=== PATIENT | female | born 1980 | race Caucasian/White ===

== ENCOUNTER 2016-12-22 01:45 | Inpatient (IN) | payer BC ==
[~2016-12-22] VITALS: Ht 162.6 cm; Wt 83.0 kg
[2016-12-22] MEDS ORDERED: OXYTOCIN/NORMAL SALINE 1,000 ML IV SCH ×2 (02:14→23:18)
[2016-12-22] MEDS ORDERED: LR 1,000 ML IV ONE (02:14)
[2016-12-22] MEDS: LR 1,000 ML IV SCH ×2 (02:14→17:42)
[2016-12-22] MEDS ORDERED: NALBUPHINE HCL 10 MG/ML AMP IM PRN (02:15)
[2016-12-22] MEDS ORDERED: NALBUPHINE HCL 10 MG/ML AMP IVP PRN (02:15)
[2016-12-22] MEDS ORDERED: TERBUTALINE SULFATE 1 MG/ML VIAL SUBCUT ONE (02:15)
[2016-12-22 02:29] LABS: PLATELET COUNT (AUTO) 241 K/uL (130-430)
[2016-12-22 02:31] LABS: MEAN CORPUSCULAR HEMOGLOBIN 29 pg (27-31); MEAN CORPUSCULAR HGB CONC 34 % (32-36); MEAN CORPUSCULAR VOLUME 86 fL (79.0-98.0)
[2016-12-22 02:32] LABS: HEMATOCRIT 35.4 % (36-48); RED CELL DISTRIBUTION WIDTH 12.6 % (9.0-15.0); WHITE BLOOD COUNT (AUTO) 6.6 K/uL (4.8-10.8)
[2016-12-22 02:46] LABS: BAND % (MANUAL) 3 % (0-6); EOSINOPHILS % (MANUAL) 1 % (0-7); LYMPHOCYTES % (MANUAL) 22 % (20-46); MONOCYTES % (MANUAL) 8 % (0-11)
[2016-12-22 02:47] LABS: BASOPHILS % (MANUAL) 0 % (0-2)
[2016-12-22] MEDS ORDERED: fentaNYL CITRATE/PF 100 MCG/2 ML AMP ONE (03:00)
[2016-12-22] MEDS ORDERED: fentaNYL CITRATE/PF 100 MCG/2 ML AMP EP ONE (03:30)
[2016-12-22] MEDS ORDERED: FENT2mCg/mL-ROPIVA0.2%/NS EPID 150 ML EP SCH (03:30)
[2016-12-22] MEDS ORDERED: ePHEDrine sulfate 50 MG/ML VIAL IVP PRN (03:30)
[2016-12-22] MEDS ORDERED: LR 500 ML IV ONE (03:30)
[2016-12-22 04:57] VITALS: BP_SYST 125
[2016-12-22] MEDS ORDERED: ROPIVACAINE 40 MG/20 ML AMP EP ONE (08:52)
[2016-12-22] MEDS ORDERED: TEMAZEPAM 15 MG CAPSULE PO PRN (21:00)
[2016-12-22] MEDS ORDERED: OXYTOCIN/NORMAL SALINE 1,000 ML IV ONE (23:18)
[2016-12-22] MEDS ORDERED: LANOLIN 7 GM OINT. TP PRN (23:30)
[2016-12-22] MEDS ORDERED: DERMOPLAST SPRAY TP PRN (23:30)
[2016-12-22] MEDS ORDERED: OXYCODONE/ACETAMINOPHEN 5-325 TABLET PO PRN ×2 (23:30)
[2016-12-22] MEDS ORDERED: MEASLES,MUMPS&RUBELLA VACC/PF 12500 UNIT/0.5 ML VIAL SUBQ PRN (23:30)
[2016-12-22] MEDS ORDERED: METHYLERGONOVINE MALEATE 0.2 MG TABLET PO PRN (23:30)
[2016-12-22] MEDS ORDERED: RHO(D) IMMUNE GLOBULIN/MALTOSE 1500 UNITS/1.3 ML (WINHRO) IM PRN (23:30)
[2016-12-22] MEDS ORDERED: ANUSOL 1 EA SUPP.RECT (PREPARATION H) RC PRN (23:30)
[2016-12-22] MEDS ORDERED: HYDROcodone/ACETAMIN 5-325 MG TAB (NORCO/ VICODIN) PO PRN (23:30)
[2016-12-22] MEDS ORDERED: HYDROCORTISONE 0.5%, 28.35 GM TOPICAL CREAM TP PRN (23:30)
[2016-12-22] MEDS ORDERED: GLYCERIN/WITCH HAZEL (TUCKS PADS) TP PRN (23:30)
[2016-12-23] MEDS: IBUPROFEN 600 MG TABLET PO SCH ×5 (00:57→23:43)
[2016-12-23] MEDS: SENNOSIDES/DOCUSATE SODIUM 1 TAB TABLET(SENOKOT-S) PO PRN (00:57)
[2016-12-23] MEDS: DOCUSATE SODIUM 100 MG CAPSULE PO PRN (00:57)
[2016-12-23 08:23] LABS: HEMATOCRIT 29.8 % (36-48); LYMPHOCYTES % (AUTO) 4.9 % (20.5-51.5); MEAN CORPUSCULAR HEMOGLOBIN 29 pg (27-31); MEAN CORPUSCULAR HGB CONC 33 % (32-36); MEAN CORPUSCULAR VOLUME 87 fL (79.0-98.0); MONOCYTES # (AUTO) 1.8 K/uL (0.0-1.0); MONOCYTES % (AUTO) 8.8 % (1.7-9.3); NEUTROPHILS # (AUTO) 17.9 K/uL (1.8-7.7); NEUTROPHILS % (AUTO) 86.3 % (40.0-70.0); PLATELET COUNT (AUTO) 212 K/uL (130-430); RED BLOOD CELL COUNT(AUTO) 3.42 MIL/uL (4.2-6.2); WHITE BLOOD COUNT (AUTO) 20.7 K/uL (4.8-10.8)
[2016-12-24] MEDS: IBUPROFEN 600 MG TABLET PO SCH ×2 (06:00→12:16)
[2016-12-24] MEDS: DOCUSATE SODIUM 100 MG CAPSULE PO PRN (08:59)
[2016-12-24] MEDS: SENNOSIDES/DOCUSATE SODIUM 1 TAB TABLET(SENOKOT-S) PO PRN (08:59)
== END 2016-12-24 14:10 | disposition home or self-care (01) | DRG 775 ==
LOC: SPU 01:45
PROVIDERS: ADMIT Obstetrics & Gynecology; ATTEND Obstetrics & Gynecology
PROC: 10E0XZZ Delivery of Products of Conception, External Approach (ICD-10-PCS; principal; 2016-12-22)
PROC: 0W8NXZZ Division of Female Perineum, External Approach (ICD-10-PCS; 2016-12-22)
PROC: 3E0S3CZ (ICD-10-PCS; 2016-12-22)
PROC: 00HU33Z Insertion of Infusion Device into Spinal Canal, Percutaneous Approach (ICD-10-PCS; 2016-12-22)
DX: O42.92 Full-term premature rupture of membranes, unspecified as to length of time between rupture and onset of labor (principal); O09.513 Supervision of elderly primigravida, third trimester; Z3A.39 39 weeks gestation of pregnancy; Z88.0 Allergy status to penicillin; Z37.0 Single live birth
CPT/HCPCS: 36415; 81002-TC; 85007; 85025; 85027; 86592; 86886; 86900; 86901; J2590; J2795; J3010